=== PATIENT | male | born 1990 | race Caucasian/White ===

== ENCOUNTER 2019-03-12 22:03 | Emergency (ER) | payer OTHER ==
[~2019-03-12] VITALS: Ht 172.7 cm; Wt 97.2 kg
[2019-03-12] MEDS ORDERED: ISOVUE-370 76% 100ML VIAL (Q9967) As Ordered ONE (22:32)
[2019-03-12 22:33] LABS: BASO # 0.1 10^3/uL (0.0-0.2); BASO % 0.9 % (0.0-1.0); EOS # 0.6 10^3/uL (0.0-0.5); EOS % 10.6 % (0.0-3.0); HEMATOCRIT 46.1 % (42.0-52.0); HEMOGLOBIN 15.4 g/dl (13.5-17.5); LYMPH # 1.8 10^3/uL (1.5-5.0); LYMPH % 32.5 % (24.0-44.0); MEAN CORPUSCULAR HEMOGLOBIN 29.8 pg (27.0-33.0); MEAN CORPUSCULAR HGB CONC 33.4 g/dl (32.0-36.5); MEAN CORPUSCULAR VOLUME 89.3 fl (80.0-96.0); MONO # 0.6 10^3/uL (0.0-0.8); NEUTROPHILS # 2.5 10^3/uL (1.5-8.5); NEUTROPHILS % 45.6 % (36.0-66.0); PLATELET COUNT, AUTOMATED 157 10^3/uL (150-450); RED BLOOD COUNT 5.16 10^6/uL (4.30-6.10); WHITE BLOOD COUNT 5.5 10^3/uL (4.0-10.0)
[2019-03-12 22:54] LABS: ALBUMIN 3.6 GM/DL (3.2-5.2); ALT/SGPT 67 U/L (12-78); AMYLASE 43 U/L (25-115); BILIRUBIN,DIRECT 0.1 MG/DL (0.0-0.2); BILIRUBIN,TOTAL 0.6 MG/DL (0.2-1.0); BLOOD UREA NITROGEN 17 MG/DL (7-18); CALCIUM LEVEL 8.9 MG/DL (8.5-10.1); CARBON DIOXIDE LEVEL 25 MEQ/L (21-32); CHLORIDE LEVEL 107 MEQ/L (98-107); CK-MB VALUE MASS 3.2 NG/ML (<3.6); CPK CREATINE PHOSPHOKINASE 268 U/L (39-308); CREATININE FOR GFR 1.03 MG/DL (0.70-1.30); ETHYL ALCOHOL (ETHANOL) < 0.003 % (0.000-0.010); GLOMERULAR FILTRATION RATE > 60.0 (>60); GLUCOSE, FASTING 124 MG/DL (70-100); LIPASE 127 U/L (73-393); MB/CK RELATIVE INDEX 1.19 (< OR =4); POTASSIUM SERUM 3.6 MEQ/L (3.5-5.1); SODIUM LEVEL 142 MEQ/L (136-145); TOTAL PROTEIN 6.7 GM/DL (6.4-8.2); TROPONIN I < 0.02 NG/ML (< 0.10)
[2019-03-12 23:35] LABS: INR 1.11
[2019-03-12 23:36] LABS: PARTIAL THROMBOPLASTIN TIME 29.9 SECONDS (25.0-38.4)
[2019-03-12 23:46] LABS: AMPHETAMINES LEVEL URINE NEGATIVE (NEGATIVE); BARBITURATES URINE NEGATIVE (NEGATIVE); BENZODIAZEPINES URINE NEGATIVE (NEGATIVE); CANNABINOIDS URINE NEGATIVE (NEGATIVE); COCAINE METABOLITE URINE NEGATIVE (NEGATIVE); METHADONE URINE NEGATIVE (NEGATIVE); OPIATES URINE NEGATIVE (NEGATIVE); PHENCYCLIDINE URINE NEGATIVE (NEGATIVE)
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
[2019-03-13 00:45] VITALS: BP 145/96
--- NOTE | 2019-03-13 16:47 | ECGEPIP ---
[facility] - ED Test Date: 2019-03-12 Pat Name: CAM COLEMAN Department: Room: - Gender: Male Hall Clerk: JASON : 1990 Requested By: Collin Cabrera Order Number: [id number] Reading MD: Milla Maldonado Measurements Intervals [place] Rate: 62 P: 63 ME: 157 QRS: 17 QRSD: 107 T: 37 QT: 392 QTc: 400 Interpretive Statements SINUS RHYTHM NO PRIOR Electronically Signed on 03-13-2019 16:46:52 EST by Milla Maldonado
== END 2019-03-13 00:46 | disposition home or self-care (01) ==
LOC: M ED 22:03
DX: S20.219A Contusion of unspecified front wall of thorax, initial encounter (principal); S30.1XXA Contusion of abdominal wall, initial encounter; S00.83XA Contusion of other part of head, initial encounter; W23.1XXA Caught, crushed, jammed, or pinched between stationary objects, initial encounter; Y92.009 Unspecified place in unspecified non-institutional (private) residence as the place of occurrence of the external cause; Y93.89 Activity, other specified
CPT/HCPCS: 36415; 70450; 70486; 71260; 72125; 74177; 80048; 80076; 80307; 82150; 82550; 82553; 83605; 83690; 84484; 85025; 85610; 85730; 86850; 86900; 86901; 93005; 93041; 94760; 99285; G0480; Q9967